=== PATIENT | female | born 1985 | race Caucasian/White ===

== ENCOUNTER 2022-05-21 01:19 | Emergency (ER) | payer OTHER ==
[~2022-05-21 01:19] MED LIST: DOXYCYCLINE HY100 MG PO; LEVAQUIN750 MG PO; NAPROSYN EC 37375 MG PO; PERCOCET 5/325 T1 EA PO; TORADOL 10 MG T10 MG PO
[2022-05-21] MEDS ORDERED: ZOFRAN ODT 4 MG4 MG SL (02:54)
[2022-05-21] MEDS ORDERED: IBU800 MG PO (02:54)
== END 2022-05-21 03:16 | disposition home or self-care (01) ==
LOC: ER1 01:19
DX: U07.1 COVID-19 (principal); J45.909 Unspecified asthma, uncomplicated
CPT/HCPCS: 0240U; 81001; 93005; 96374; 96375; 99284; J1885; J2405